=== PATIENT | female | born 1945 | race Caucasian/White ===

== ENCOUNTER 2018-06-27 18:45 | Inpatient (IN) | payer OTHER ==
[~2018-06-27] VITALS: Ht 152.4 cm; Wt 47.3 kg
[2018-06-27] MEDS ORDERED: ALBU2.5V5 NEB (20:10)
[2018-06-27] MEDS ORDERED: ALBU90OI61 INH (20:11)
[2018-06-27] MEDS ORDERED: CALCIUM 500 +1 EAC3 PO (20:12)
[2018-06-27] MEDS ORDERED: CLOP75 PO (20:12)
[2018-06-27] MEDS ORDERED: BUDE6HFA INH (20:12)
[2018-06-27] MEDS ORDERED: CARV25 PO (20:12)
[2018-06-27] MEDS ORDERED: FLONASE ALLERG9.9 ML (20:13)
[2018-06-27] MEDS ORDERED: Mucus Relief400 MG PO (20:14)
[2018-06-27] MEDS ORDERED: Acidophilus La100 GM PO (20:15)
[2018-06-27] MEDS ORDERED: LEVSOD50 PO (20:15)
[2018-06-27] MEDS ORDERED: HYDSUL200 PO (20:15)
[2018-06-27] MEDS ORDERED: LOSARTAN POTASS50 MG PO (20:19)
[2018-06-27] MEDS ORDERED: LORATADINE10 MG PO (20:19)
[2018-06-27] MEDS ORDERED: METF500C PO (20:19)
[2018-06-27] MEDS ORDERED: PRED20 PO (20:20)
[2018-06-27] MEDS ORDERED: ROSUVASTATIN CA40 MG PO (20:23)
[2018-06-27] MEDS ORDERED: Zantac150 MG PO (20:23)
[2018-06-27 21:17] LABS: Adenovirus Not Detected (NOT DETECT); Bordetella pertussis Not Detected (NOT DETECT); Chlamydophila pneumoniae Not Detected (NOT DETECT); Coronavirus 229E Not Detected (NOT DETECT); Coronavirus HKU1 Not Detected (NOT DETECT); Coronavirus NL63 Not Detected (NOT DETECT); Coronavirus OC43 Not Detected (NOT DETECT); Human Metapneumovirus Not Detected (NOT DETECT); Human Rhinovirus/Enterovirus Not Detected (NOT DETECT); Influenza A/2009-H1 Not Detected (NOT DETECT); Influenza A/H1 Not Detected (NOT DETECT); Influenza A/H3 Not Detected (NOT DETECT); Influenza B Not Detected (NOT DETECT); Mycoplasma pneumoniae Not Detected (NOT DETECT); Parainfluenza Virus 1 Not Detected (NOT DETECT); Parainfluenza Virus 2 Not Detected (NOT DETECT); Parainfluenza Virus 3 Not Detected (NOT DETECT); Parainfluenza Virus 4 Not Detected (NOT DETECT); Respiratory Syncytial Virus Not Detected (NOT DETECT)
[2018-06-27 22:38] LABS: Influenza A Not Detected (NOT DETECT)
--- NOTE | 2018-06-27 23:37 | NUR ---
PATIENT IS WRONG IN SYSTEM. ED NURSE REPORTS IT SHOULD BE CORRECTED BY THE TIME PATIENT IS ON MEDICAL FLOOR AND IS NOT. PATIENT REPORTS CORRECT : 1945 AND NOT 07/08/1925. CHARGE NURSE NOTIFIED AND ACC.
--- NOTE | 2018-06-27 23:42 | NUR ---
PATIENT IS A NEW ADMIT FROM THE ED. AXOX 3 AND SBA TRANSFER FROM [facility] TO BED. IV ABX INFUSING. PATIENT ON 3L O2 BASELINE. DENIES PAIN, SOB, AND N/V. ORIENTED TO ROOM AND CALL LIGHT SYSTEM. PATIENT WATCHING TV. CALL LIGHT IN REACH.
--- NOTE | 2018-06-28 00:49 | NUR ---
SURGERY CONSULT CALLED IN TO DR ALLISON ANSWERING SERVICE.
--- NOTE | 2018-06-28 00:50 | NUR ---
NS INFUSING AT 75 mL/HR X ONE BAG. SOLU-MEDROL GIVEN PER EMAR. IV VANCO INFUSING. PATIENT ON 3L O2 BASELINE. REPORTS BREATHING EASIER. CALL LIGHT IN REACH. RESTING WITH TV ON.
--- NOTE | 2018-06-28 03:27 | NUR ---
ARLEY CORRECTED: 1945
--- NOTE | 2018-06-28 04:09 | NUR ---
SHIFT SUMMARY PATIENT IS A NEW ADMIT FROM THE ED. AXO X3 AND ONE ASSIST TO BR. DENIES PAIN AND N/V. ON 3L O2 NC BASELINE. PIV REMAINS INTACT. NS INFUSING AT 75 mL/HR X ONE BAG. IV ABXS INFUSED. SOLU-MEDROL GIVEN PER EMAR. SURGERY CONSULT CALLED IN. AC/HS START TODAY. VAMP MARKER REPORTS NSR 80. CORRECTED AND NEW ARM BAND PLACED. TAKES MEDS WHOLE WITH WATER. COOPERATIVE WITH CARE. VSS/AFEBRILE. CALL LIGHT IN REACH. BED IN LOWEST POSITION. WILL CONTINUE TO MONITOR UNTIL DAY SHIFT NURSE ASSUMES CARE.
[2018-06-28 05:04] LABS: Hematocrit 38.8 % (33.0-51.0); Hemoglobin 12.2 g/dL (11.5-16.0); Mean Corpuscular HGB 29.7 pg (26.0-34.0); Mean Corpuscular HGB Conc 31.4 g/dL (31.5-36.5); Mean Corpuscular Volume 94 fL (80-100); Mean Platelet Volume 10.7 fL (9.1-12.4); Platelet Count 130 K/mm3 (150-400); RDW Coefficient Variation 13.7 % (11.7-14.2); Red Blood Cell Count 4.11 M/mm3 (3.80-5.20); White Blood Cell Count 16.49 K/mm3 (4.00-11.30)
[2018-06-28 05:38] LABS: Alanine Aminotransfer (ALT/SGP 20 U/L (12-78); Albumin, Blood 2.7 g/dL (3.4-5.0); Albumin/Globulin Ratio 0.6 (0.8-1.8); Alk Phos 58 U/L (50-136); Anion Gap 10 mmol/L (6-16); Aspartate Aminotrans (AST/SGOT 18 U/L (12-37); Bilirubin, Total 0.9 mg/dL (0.1-1.0); Blood Urea Nitrogen 15 mg/dL (8-24); Bun/Creatinine Ratio 22.8 (12.0-20.0); CO2, Blood 27 mmol/L (21-32); Calcium, Blood 8.6 mg/dL (8.5-10.1); Chloride, Blood 100 mmol/L (98-108); Creatinine, Blood 0.66 mg/dL (0.40-1.00); Globulin, Blood 4.2 g/dL (2.2-4.0); Glomerular Filtration Rate >60 (60-); Glucose, Blood 84 mg/dL (70-99); Potassium, Blood 3.9 mmol/L (3.5-5.5); Sodium, Blood 137 mmol/L (136-145); Total Protein, Blood 6.9 g/dL (6.4-8.2)
--- NOTE | 2018-06-28 14:40 | NUR ---
WAS IN TO SEE PATIENT AND AT THIS TIME NO SURGICAL INTERVENTION NEEDED.
--- NOTE | 2018-06-28 15:51 | NUR ---
PATIENT STS SHE TAKES WELLBUTRIN 75 MG BID FOR DEPRESSION. NOT ON V.A. LIST. PER DR.HACK DUMONT TO ORDER.
--- NOTE | 2018-06-28 15:59 | NUR ---
PATIENT UNSURE IF WELLBUTRIN IR OR SR. SON WILL CALL TONIGHT TO VERIFY HOW OFTEN AND DOSE.
--- NOTE | 2018-06-28 17:26 | NUR ---
PATIENT ALERT AND ORIENTED. SAW PATIENT AND AT THIS TIME NO NEED FOR SURGERY. JUST NOW C/O PAIN AND MEDICATED. NO DRAINAGE FROM GLUTEAL ABSCESS. PATIENT AMB. STEADY GAIT IN ROOM. BED IN LOW POSITION. CALL LIGHT WITHIN REACH. WILL CONTINUE TO MONITOR.
[2018-06-28 23:28] LABS: Vancomycin, Trough 15.8 ug/mL (5.0-10.0)
--- NOTE | 2018-06-29 00:42 | NUR ---
WELLBUTRIN SR 150 MG BID ORDERED PER DR BLAIR TO START TODAY. CALL LIGHT IN REACH.
--- NOTE | 2018-06-29 00:43 | NUR ---
PATIENT REQUEST GUAIFENESIN PRN PER EMAR. SOLU-MEDROL GIVEN PER EMAR. VANCO IV INFUSING. PATIENT DENIES PAIN, SOB, AND N/V. PATIENT REPORTS BREATHING IS EASIER. CALL LIGHT IN REACH. WILL CONTINUE TO MONITOR.
--- NOTE | 2018-06-29 04:21 | NUR ---
SHIFT SUMMARY PATIENT HAD NO ACUTE CHANGES OBSERVED DURING THE SHIFT. AXOX 3 AND SBA TO BSC. DENIES PAIN, SOB, AND N/V. ON 3L O2 NC BASELINE. PIV REMAINS INTACT. IV ABXS INFUSED. GUAFENISEN GIVEN PRN PER PATIENT REQUEST. SOLU-MEDROL GIVEN PER EMAR. NOTE CBG 299 AND INCREASED SINCE YESTERDAY START ON LOW SLIDING SCALE WITH MORNING CBG 109. WELLBUTRIN SR ADDED PER EMAR 150 MG BID. VSS/AFEBRILE. CALL LIGHT IN REACH. FIRST NAME SPELLING CORRECTED BY ACC AND NAME BAND REPLACED. CALL LIGHT IN REACH. BED IN LOWEST POSITION. WILL CONTINUE TO MONITOR UNTIL DAY SHIFT NURSE ASSUMES CARE.
--- NOTE | 2018-06-29 10:51 | NUR ---
DISCUSS WITH ABOUT LOW DOSE ANTI ANXIETY MED. WHEN INSURANCE CLAIMS REPRESENTATIVE TRIED TO GET PATIENT UP TO SHOWER PATIENT FELT SOB AND INSURANCE CLAIMS REPRESENTATIVE THOUGHT SHE WAS GOING TO PASS OUT. WHEN RN ARRIVED SATS MID 90'S LUNGS LITTLE TIGHT, R.T. CALLED. PATIENT FELT BETTER AFTER RESTING. PER MD WILL ORDER ANTI ANXIETY MED.
[2018-06-29 11:38] LABS: Creatinine, Blood 0.62 mg/dL (0.40-1.00); Vancomycin, Trough 19.2 ug/mL (5.0-10.0)
--- NOTE | 2018-06-29 18:29 | NUR ---
PATIENT ALERT AND ORIENTED. GLUTEAL ABSCESS NOT HARD YESTERDAY. MEDICATED FOR BACK PAIN W/GOOD RESULTS. PATIENT GETS VERY SOB W/SMALL AMOUNT OF ACTIVITY. AWARE TO STOP, BREATH THRU NOSE AND PURSE LIP BREATHING. IV PATENT. HOME DIABETIC MEDS ORDERED. P.T. EVAL DONE W/PATIENT DOING EXERCISES IN CHAIR AFTER EVAL. BED IN LOW POSITION. USES CALL LIGHT APPROPRIATELY. WILL CONTINUE TO MONITOR.
--- NOTE | 2018-06-29 21:41 | NUR ---
PATIENT ASSESSMENT COMPLETE. CBG 242. SOLU-MEDROL GIVEN PER EMAR. DENIES PAIN AND N/V. TALKING ON PHONE WITH FAMILY. CALL LIGHT IN REACH.
[2018-06-29 23:42] LABS: Vancomycin, Trough 20.8 ug/mL (5.0-10.0)
--- NOTE | 2018-06-30 03:58 | NUR ---
PATIENT REPORTS SOB AND WHEEZING UP TO BSC. RT NOTIFIED FOR A BREATHING TX. CALL LIGHT IN REACH.
--- NOTE | 2018-06-30 04:13 | NUR ---
SHIFT SUMMARY PATIENT HAD NO ACUTE CHANGES OBSERVED DURING THE SHIFT. AXOX 3 AND SBA TO BSC. REPORTED BACK PAIN AND RECEIVED TYLENOL PER EMAR. ON 3L O2 NC. PIV REMAINS INTACT. IV ABX INFUSED. MIDNIGHT VANCO HELD WITH TROUGH OF 20.8. CBG 242 AND LANTUS STARTED THIS SHIFT. PATIENT REPORTS SOB AND WHEEZING UP TO BSC NOW. REQUEST BREATHING TX AND RT NOTIFIED. LUNGS EXP WHEEZES. VSS/AFEBRILE. CALL LIGHT IN REACH. BED IN LOWEST POSITION. WILL CONTINUE TO MONITOR UNTIL DAY SHIFT NURSE ASSUMES CARE.
[2018-06-30 05:02] LABS: Hematocrit 32.4 % (33.0-51.0); Hemoglobin 9.9 g/dL (11.5-16.0); Mean Corpuscular HGB Conc 30.6 g/dL (31.5-36.5); Mean Corpuscular Volume 95 fL (80-100); Mean Platelet Volume 11.2 fL (9.1-12.4); Platelet Count 127 K/mm3 (150-400); RDW Coefficient Variation 14.1 % (11.7-14.2); Red Blood Cell Count 3.41 M/mm3 (3.80-5.20); White Blood Cell Count 9.04 K/mm3 (4.00-11.30)
[2018-06-30 05:36] LABS: Anion Gap 8 mmol/L (6-16); Blood Urea Nitrogen 27 mg/dL (8-24); Bun/Creatinine Ratio 47.2 (12.0-20.0); CO2, Blood 28 mmol/L (21-32); Calcium, Blood 7.9 mg/dL (8.5-10.1); Chloride, Blood 106 mmol/L (98-108); Creatinine, Blood 0.57 mg/dL (0.40-1.00); Glomerular Filtration Rate >60 (60-); Glucose, Blood 201 mg/dL (70-99); Potassium, Blood 4.8 mmol/L (3.5-5.5); Sodium, Blood 142 mmol/L (136-145)
--- NOTE | 2018-06-30 17:45 | NUR ---
SHIFT SUMMARY PT WITH 1 PERSON ASSIST TO COMMODE. REPORTS SOB WITH ANY EXERTION AND NEEDS TO RECOVER BEFORE MOVING ON. VERY CHATTY AND STATES SHE ATTRIBUTES IT TO THE STERIODS SHE IS TAKING. BP ELEVATED. CALLED MD AND RECEIVED NEW ORDERS.
--- NOTE | 2018-07-01 03:37 | NUR ---
SHIFT SUMMARY NO ACUTE CHANGES TO PRESENT THIS SHIFT. PT HAS BEEN AWAKE MOST OF THE NIGHT, UNTIL JUST RECENTLY GOING TO SLEEP. PT ADMITTED FOR GLUTEAL ABSCESS; L BUTTOCK INSIDE TO RECTUM APPEARS VERY RED. NO DRSG IN PLACE. PT TO HAVE CT IN AM. PT TO BE NPO UNTIL AFTER DR ALLISON EVALUATES RESULTS OF CT. PER SHIFT REPORT, PT STARTED ON NEW AND INCREASED BP MEDICATION LAST NIGHT FOR HTN. CURRENTLY ON 3L O2, WHICH IS BASELINE AT HOME. PT IS SBA TO BTHRM. ABLE TO MAKE NEEDS KNOWN. REQUESTED TYLENOL AT HS TO LBP. DENIED FURTHER NEEDS. NO S/SX OF DISTRESS NOTED.
[2018-07-01 05:37] LABS: Vancomycin, Trough 16.8 ug/mL (5.0-10.0)
--- NOTE | 2018-07-01 06:20 | NUR ---
BP ELEVATED THIS AM. DR COOK NOTIFIED. NEW ORDERS RECEIVED AND GIVEN. NEW BP MEDS STARTED LAST NIGHT AND TO BE GIVEN AGAIN THIS AM. PT ALSO REQUESTED RT TX AFTER BEING WOKE THIS AM. RT NOTIFIED. PT REPORTED FEELING BETTER AFTER TX GIVEN. PT PLEASANT, TALKATIVE. SITTING UP TO EOB, WATCHING TV. IV VANCO OBTAINED FROM PHARMACY AFTER VANCO TROUGH RESULTS IN; INFUSING PER EMAR AT THIS TIME.
--- NOTE | 2018-07-01 17:21 | NUR ---
summary PT IS A/O X4, PLEASANT/COOPERATIVE AFFECT. SBA IN ROOM. SHE IS SOMEWHAT SOB WITH EXERTION, HX COPD, O2 @ 3L HOME DOSE BIOX 93% SHE STATE NO COUGH @ THIS TIME. L GLUTEAL REDNESS CONTINUES, SHE WAS NPO THIS AM FOR POSSIBLE I&D HOWEVER DR ALLISON REVIEW CT, NEGATIVE FOR ABCESS, STATE NO SURG REQUIRED. SHE CONTINUES ON IV ANTIBX HOWEVER DR BLAIR STATE IF CONTINUES TO IMPROVE POSSIBLE D/C HOME TOMORROW WOTH ORAL ANTIBX. HAS ADJUSTED BP MEDS, LAST BP 134/71, IMPROVED. OPTICAL ADVISOR PROVIDE SHOWER TODAY.
--- NOTE | 2018-07-02 04:12 | NUR ---
SHIFT SUMMARY PT CONTINUES TO IMPOVED; REPORTED GLUTEAL ABSCESS FEELING BETTER. NO SURGICAL INTERVENTION NEEDED; PRESENTLY CELLULITIS. BREATHING ALSO IMPROVED TONIGHT OVER SATURDAY MORNING; VERY FEW EXP WHEEZES NOTED. HTN ALSO BEING MANAGED MUCH BETTER WITH MEDICATION ADJUSTMENTS. STILL NO SPUTUM CX OBTAINED, PT IS NOT COUGHING. INDEPENDANT TO BSC THRU OUT THE SHIFT. NO C/O. DENIED NEEDS. CALL LT IN REACH. POSS D/C TODAY.
--- NOTE | 2018-07-02 07:35 | NUR ---
COMING ONTO SHIFT PATIENT HAD A BLOOD SUGAR OF 56. GAVE ORANGE JUICE AND YOGART. DR. BLAIR NOTIFIED. WILL RECHECK IN 30 MINS.
[2018-07-02] MEDS ORDERED: CULTURELLE1 EACH PO (11:10)
[2018-07-02] MEDS ORDERED: AMLO5 PO (11:10)
[2018-07-02] MEDS ORDERED: DOXY100 PO (11:11)
--- NOTE | 2018-07-02 11:12 | NUR ---
PROGRESS NOTES AND MED REC FAXED TO [facility] ([phone]). PER SC IT WILL BE A COUPLE DAYS UNTIL MEDS ARE READY. SPOKE WITH PT AND MEDS FAXED TO [facility] [place].
== END 2018-07-02 13:45 | disposition home or self-care (01) | DRG 191 ==
LOC: ER 18:45 → EDBD 20:37 → MEDS 20:37 → ENPENDDIS 07-02 10:45 → MEDS 07-02 13:45
PROVIDERS: Internal Medicine; Pharmacist; ADMIT Internal Medicine
DX: J43.9 Emphysema, unspecified (principal); L03.317 Cellulitis of buttock; J96.11 Chronic respiratory failure with hypoxia; Z68.1 Body mass index [BMI] 19.9 or less, adult; R64 Cachexia; E44.0 Moderate protein-calorie malnutrition; K44.9 Diaphragmatic hernia without obstruction or gangrene; M19.90 Unspecified osteoarthritis, unspecified site; J45.909 Unspecified asthma, uncomplicated; I25.10 Atherosclerotic heart disease of native coronary artery without angina pectoris; K21.9 Gastro-esophageal reflux disease without esophagitis; E78.5 Hyperlipidemia, unspecified; I25.5 Ischemic cardiomyopathy; Z99.81 Dependence on supplemental oxygen; Z87.01 Personal history of pneumonia (recurrent); E03.9 Hypothyroidism, unspecified; Z79.02 Long term (current) use of antithrombotics/antiplatelets
CPT/HCPCS: 36415; 71045; 72193; 80048; 80053; 80202; 82565; 82947; 85027; 87486; 87581; 87633; 87798; 94640; 94760; 96374; 97110; 97116; 97162; 97530; 99285-25; G8978; G8979; J0360; J1650; J2543; J2920; J2930; J3370; J7030; J7050; Q9967